=== PATIENT | male | born 1935 | race Hispanic/Latino ===

== ENCOUNTER 2018-06-14 15:24 | Emergency (ER) | payer MEDICARE, BC ==
[2018-06-14 15:57] VITALS: BMI 37.9
[2018-06-14 16:02] VITALS: TEMP 98.4
[2018-06-14] MEDS ORDERED: TDAP Vaccine 0.5 mL Syr IM ONE (16:38)
--- NOTE | 2018-06-14 17:48 | ED PDOC ---
Arrival/HPI - General Chief Complaint: Abnormal Skin Integrity Time Seen by Provider: 06/14/18 16:37 Historian: Patient EM Caveat: Acuity of Condition - History of Present Illness Narrative History of Present Illness (Text): 06/14/18 17:44 Pt is an 82 yr old male who present to the ED for right hand laceration s/p fall on his right hand while using crutches. Pt states that he lost his balance and the right hand landed on the crutch but denies hitting his head or injury to any other body part. Pt denies loss of sensation, LOC, weakness, dizziness, motor weakness or any other complaint. Last tetanus vaccination unknown. Right hand dominant. 06/15/18 01:50 Time/Duration: Prior to Arrival Symptom Onset: Sudden Symptom Course: Unchanged Quality: Unable to Describe Severity Level: 3 Activities at Onset: Rest, Light Context: Home Past Medical History - Provider Review Nursing Documentation Reviewed: Yes - Travel History Have you recently traveled outside [place] w/in the past 3 mons?: No - Infectious Disease Hx of Infectious Diseases: None - Cardiac Hx Hypertension: Yes - Genitourinary/Gynecological Other/Comment: + urostomy - Psychiatric Hx Substance Use: No - Surgical History Other/Comment: R hip replacement. Bladder removal Family/Social History - Physician Review Nursing Documentation Reviewed: Yes Family/Social History: Unknown Family HX Smoking Status: Never Smoked Hx Alcohol Use: No Hx Substance Use: No Allergies/Home Meds Allergies/Adverse Reactions: Allergies No Known Allergies Allergy (Verified 06/14/18 15:56) Home Medications: Home Meds Medication Instructions Recorded Confirmed Bisoprolol/HCTZ [Ziac 10-6.25 mg] 1 tab PO DAILY 06/14/18 06/14/18 Review of Systems - Review of Systems Constitutional: Normal Eyes: Normal ENT: Normal Respiratory: Normal Cardiovascular: Normal Gastrointestinal: Normal Genitourinary Male: Normal Musculoskeletal: Normal Skin: Normal, Laceration (right hand at palm crease) Neurological: Normal Endocrine: Normal Hemo/Lymphatic: Normal Psychiatric: Normal Physical Exam Vital Signs Reviewed: Yes Vital Signs Temp Pulse Resp BP Pulse Ox 06/14/18 18:00 98 06/14/18 17:30 76 16 148/78 98 06/14/18 16:02 98.4 F 71 18 141/75 95 Temperature: Afebrile Blood Pressure: Normal Pulse: Regular Respiratory Rate: Normal Appearance: Positive for: Well-Appearing, Non-Toxic, Comfortable Pain Distress: Mild Mental Status: Positive for: Alert and Oriented X 3 - Systems Exam Head: Present: Atraumatic, Normocephalic Neck: Present: Normal Range of Motion Respiratory/Chest: Present: Clear to Auscultation, Good Air Exchange. No: Respiratory Distress, Accessory Muscle Use Cardiovascular: Present: Regular Rate and Rhythm, Normal S1, S2. No: Murmurs Abdomen: No: Tenderness, Distention, Peritoneal Signs Back: Present: Normal Inspection Upper Extremity: Present: Normal Inspection. No: Cyanosis, Edema Lower Extremity: Present: Normal Inspection. No: Edema Neurological: Present: GCS=15, CN II-XII Intact, Speech Normal Skin: Present: Warm, Dry, Normal Color, Laceration (3cm and 1 cm lacerations on palm of right hand). No: Rashes Psychiatric: Present: Alert, Oriented x 3, Normal Insight, Normal Concentration , Normal Affect Medical Decision Making ED Course and Treatment: 06/14/18 17:45 Impression 82 yr old male who present to the ED for right hand laceration s/p fell on his right hand while using crutches A&Ox3, no active bleeding form the right hand; cap refill <2 secs, SILT, motor function of hand intact Plan lac repair to right hand palm keflex po stat tetanus booster im assess and dispo Progress note Advised pt of required lac repair and receive d verbal consent to proceed Right hand was thoroughly irrigated with saline and betadine solution Lidocaine 1% was infiltrated around the lacs total of 12 sutures required to close both lacerations Dosed with Kelflex 500mg PO Tetanus booster advised to f/u for suture removal in 7 days take Keflex PO x 7 days - Medication Orders Current Medication Orders: Discontinued Medications Cephalexin Monohydrate (Keflex) 500 mg PO STAT STA PRN Reason: Protocol Stop: 06/14/18 16:46 Last Admin: 06/14/18 17:09 Dose: 500 mg Tetanus/Reduced Diphtheria/Acell Pertussis (Boostrix Vaccine Inj) 0.5 ml IM .ONCE ONE Stop: 06/14/18 16:39 Last Admin: 06/14/18 17:00 Dose: 0.5 ml Immunization Registry Document 06/14/18 17:00 ALICJA (Rec: 06/14/18 17:08 [id number]) Immunization Registry Consent Date 11/06/17 - Procedure PROCEDURE NOTE (Text): 06/14/18 18:18 PROCEDURE: LACERATION REPAIR Performed by the emergency provider Location: Right Hand Length: 3 cm and 1 cm Description: clean wound edges and no foreign bodies Distal CMS: ~Normal.~ No deficits.~ Neurovascularly intact. Anesthesia: Lidocaine 1% 5cc used to infiltrate area Preparation: The wound was cleaned with NS and Betadyne. The area was prepped and draped in the usual sterile fashion.~ Exploration: ~ The wound was explored and no foreign bodies were found. Procedure: The wound was closed with 4.0 nylon.~ There was good approximation.~ In total, 12 were used. Post-Procedure: ~Good closure and hemostasis.~ The patient tolerated the procedure well and there were no complications.~ CSM remains intact.~ Post procedure dressing applied. Disposition/Present on Arrival - Present on Arrival Any Indicators Present on Arrival: Yes History of DVT/PE: No History of Uncontrolled Diabetes: No Urinary Catheter: No History of Decub. Ulcer: No History Surgical Site Infection Following: None - Disposition Have Diagnosis and Disposition been Completed?: Yes Diagnosis: Laceration of right hand without complication, excluding fingers Disposition: HOME/ ROUTINE Disposition Time: 17:48 Patient Plan: Discharge Condition: GOOD Discharge Instructions (ExitCare): Wound Care (DC), Laceration Repair With Stitches (DC) Additional Instructions: MELLY SANTOS, thank you for letting us take care of you today. Your provider was Pravin Villavicencio DO and NADIA Rivera and you were treated for a laceration to the right hand. The emergency medical care you received today was directed at your acute symptoms. If you were prescribed any medication, please fill it and take as directed. It may take several days for your symptoms to resolve. Return to the Emergency Department if your symptoms worsen, do not improve, or if you have any other problems. HAVE SUTURES REMOVED IN 7 DAYS BY RETURNING TO THE EMERGENCY DEPARTMENT Or SEE YOUR PRIMARY CARE DOCTOR Please contact your doctor or call one of the physicians/clinics you have been referred to that are listed on the Patient Visit Information form that is included in your discharge packet. Bring any paperwork you were given at discharge with you along with any medications you are taking to your follow up visit. Our treatment cannot replace ongoing medical care by a primary care provider outside of the emergency department. Thank you for allowing the [facility] team to be part of your care today. Prescriptions: Cephalexin [cephalexin] 500 mg PO Q6 7 Days #28 cap Forms: [employer] (Iraqi)
[2018-06-14 18:40] VITALS: BP 148/78; PULSE 76; RESP 16; O2SAT 98
== END 2018-06-14 19:04 | disposition home or self-care (01) ==
LOC: ED 15:24
DX: S61.411A Laceration without foreign body of right hand, initial encounter (principal); W18.30XA Fall on same level, unspecified, initial encounter; Y92.009 Unspecified place in unspecified non-institutional (private) residence as the place of occurrence of the external cause; I10 Essential (primary) hypertension; Z96.641 Presence of right artificial hip joint

== ENCOUNTER 2018-06-21 11:04 | Emergency (ER) | payer MEDICARE, BC ==
[2018-06-21 11:47] VITALS: RESP 18; TEMP 98.1; BMI 38.2
--- NOTE | 2018-06-21 12:23 | ED PDOC ---
Arrival/HPI - General Chief Complaint: Suture/Staple Removal Time Seen by Provider: 06/21/18 12:16 Historian: Patient - History of Present Illness Narrative History of Present Illness (Text): 06/21/18 12:20 An 82 year old male presents to the emergency room for suture removal. Patient states that he had a laceration repair 1 week ago to his right palm. he patient has been complying with his antibiotics. The patient denies fevers, chills, headache, dizziness, sore throat, cough, chest pain, shortness of breath, dyspnea on exertion, abdominal pain, nausea, vomiting, diarrhea, neck/back pain , urinary/bowel changes or any new somatic complaint. PMD: Dr. Restrepo Time/Duration: 1 week Symptom Course: Improving Activities at Onset: Rest, Light Context: Home Past Medical History - Provider Review Nursing Documentation Reviewed: Yes - Infectious Disease Hx of Infectious Diseases: None - Cardiac Hx Hypertension: Yes - Genitourinary/Gynecological Other/Comment: + urostomy - Psychiatric Hx Substance Use: No - Surgical History Other/Comment: R hip replacement. Bladder removal Family/Social History - Physician Review Nursing Documentation Reviewed: Yes Family/Social History: No Known Family HX Smoking Status: Never Smoked Hx Alcohol Use: No Hx Substance Use: No Allergies/Home Meds Allergies/Adverse Reactions: Allergies No Known Allergies Allergy (Verified 06/14/18 15:56) Home Medications: Home Meds Medication Instructions Recorded Confirmed Bisoprolol/HCTZ [Ziac 10-6.25 mg] 1 tab PO DAILY 06/14/18 06/14/18 Review of Systems - Physician Review All systems were reviewed & negative as marked: Yes - Review of Systems Constitutional: absent: Fevers, Night Sweats Respiratory: absent: SOB, Cough Cardiovascular: absent: Chest Pain, [place] Gastrointestinal: absent: Abdominal Pain, Stool Changes, Diarrhea, Nausea, Vomiting Genitourinary Male: absent: Urinary Output Changes Musculoskeletal: Other (Right hand suture removal). absent: Back Pain, Neck Pain Neurological: absent: Headache, Dizziness Physical Exam Vital Signs Reviewed: Yes Vital Signs Temp Pulse Resp BP Pulse Ox 06/21/18 11:46 98.1 F 71 18 130/72 95 Temperature: Afebrile Blood Pressure: Normal Pulse: Regular Respiratory Rate: Normal Appearance: Positive for: Well-Appearing, Non-Toxic, Comfortable Pain Distress: None Mental Status: Positive for: Alert and Oriented X 3 - Systems Exam Head: Present: Atraumatic, Normocephalic Pupils: Present: PERRL Extroacular Muscles: Present: EOMI Conjunctiva: Present: Normal Mouth: Present: Moist Mucous Membranes Neck: Present: Normal Range of Motion Respiratory/Chest: Present: Clear to Auscultation, Good Air Exchange. No: Respiratory Distress, Accessory Muscle Use Cardiovascular: Present: Regular Rate and Rhythm, Normal S1, S2. No: Murmurs Abdomen: No: Tenderness, Distention, Peritoneal Signs Back: Present: Normal Inspection Upper Extremity: Present: Other (11 sutures on the riht palm. There was a 5-6 mm dehesdin area within the wound. Wound measred approximately 5 cm in length. No cellulitis, tenderness, bleeding, or discharge. ) Lower Extremity: Present: Normal Inspection. No: Edema Neurological: Present: GCS=15, CN II-XII Intact, Speech Normal Skin: Present: Warm, Dry, Normal Color. No: Rashes Psychiatric: Present: Alert, Oriented x 3, Normal Insight, Normal Concentration Medical Decision Making ED Course and Treatment: 06/21/18 12:25 Impression: An 82 year old male presents to the emergency room for suture removal. Plan: -- Suture Removal -- Reassess and disposition Prior Visits: Notes and results from previous visits were reviewed. On 06/14/2018, the patient was seen in the emergency room for a laceration of his right hand s/p a fall. Laceration repair to the right hand was done. Patient was discharged home on Cephalexin. Progress Notes: PROCEDURE: SUTURE REMOVAL Performed by the emergency provider Location: Right palm Length: 5 cm Distal CMS: Normal. No deficits. Neurovascularly intact. Preparation: The wound was cleaned with NS and Betadyne. The area was prepped and draped in the usual sterile fashion. Procedure: In total, 11 sutures were removed. Post-Procedure: Good closure and hemostasis. The patient tolerated the procedure well and there were no complications. CSM remains intact. Wound dressing applied. Recommended to follow-up with PMD as needed and to return to the emergency room if there are any signs of hand infection or pain. Re-evaluation Time: 12:29 Reassessment Condition: Re-examined, Improved - Scribe Statement The provider has reviewed the documentation as recorded by the Scribe Shayla Mcgee Provider Avtar Attestation: All medical record entries made by the Maryannibidris were at my direction and personally dictated by me. I have reviewed the chart and agree that the record accurately reflects my personal performance of the history, physical exam, medical decision making, and the department course for this patient. I have also personally directed, reviewed, and agree with the discharge instructions and disposition. Disposition/Present on Arrival - Present on Arrival Any Indicators Present on Arrival: No History of DVT/PE: No History of Uncontrolled Diabetes: No Urinary Catheter: No History of Decub. Ulcer: No History Surgical Site Infection Following: None - Disposition Have Diagnosis and Disposition been Completed?: Yes Diagnosis: Encounter for wound re-check, Encounter for removal of sutures Disposition: HOME/ ROUTINE Disposition Time: 12:31 Patient Plan: Discharge Patient Problems: Current Active Problems Problem Status Onset Encounter for wound re-check Acute Encounter for removal of sutures Acute Condition: IMPROVED Discharge Instructions (ExitCare): Stitches Removal Additional Instructions: Call private doctor for follow up visit in 1-2 days. Clean wound daily with soap and water. Return to emergency if wound becomes painful or redness. Prescriptions: Cephalexin [Keflex] 500 mg PO QID #20 capsule Referrals: Harris Restrepo MD [Primary Care Provider] - Follow up with primary Forms: [employer] (Amharic)
[2018-06-21 12:39] VITALS: BP 126/68; PULSE 72; O2SAT 98
== END 2018-06-21 12:34 | disposition home or self-care (01) ==
LOC: ED 11:04
DX: Z48.02 Encounter for removal of sutures (principal)